=== PATIENT | male | born 1990 | race African-American/Black ===

== ENCOUNTER 2022-08-08 11:35 | Outpatient (REF) | payer MEDICAID, SELFPAY ==
[2022-08-08 12:42] LABS: COVID-19 Test Negative (Negative); IDNOW Serial# 55D5AD1C
== END 2022-08-08 11:36 | disposition home or self-care (01) ==
LOC: HO.LAB 11:35
PROVIDERS: Visit Provider Internal Medicine
DX: Z20.822 Contact with and (suspected) exposure to COVID-19 (principal)
CPT/HCPCS: 87635; C9803

== ENCOUNTER 2022-09-25 10:24 | Emergency (ER) | payer MEDICAID, SELFPAY ==
--- NOTE | ~2022-09-25 | XR_ITS ---
EXAMINATION: XR LUMBOSACRAL SPINE CLINICAL INFORMATION: Back pain. COMPARISON: None TECHNIQUE: Three views of the lumbosacral spine. FINDINGS: The vertebral bodies and posterior elements are normal. The disc spaces are preserved and the vertebral alignment is normal. The paraspinal soft tissues are normal. XR/XR lumbar spine 2-3V IMPRESSION: Unremarkable lumbar spine.
[2022-09-25 12:04] VITALS: BP 110/83; PULSE 49; RESP 18; TEMP 36.2; O2SAT 100; BMI 26.6
--- NOTE | 2022-09-25 12:07 | ED_ITS ---
HPI - General Adult General Chief complaint: Back Pain/Injury <MARKO Weston - Last Filed: 09/30/22 15:18> Stated complaint: Low Back Pain No Injury <MARKO Weston - Last Filed: 09/30/22 15:18> Time Seen by Provider: 09/25/22 12:57 <MARKO Weston - Last Filed: 09/30/22 15:18> History of Present Illness HPI narrative: Patient complains of back pain for the last 3 days after bending while getting dressed, no radiation of pain, no weakness of muscles no difficulty walking, pain is reproduced with movement, no changes to bowel or bladder no loss of sensation <MARKO Max Last Filed: 09/25/22 17:55> Related Data Home medications: Previous Rx's Medication Instructions Recorded acetaminophen 500 mg tablet 1,000 mg PO QID PRN pain #30 tabs 09/25/22 cyclobenzaprine 5 mg tablet 5 mg PO TID PRN muscle spasm #14 09/25/22 tabs ibuprofen 600 mg tablet 600 mg PO Q6H PRN pain #20 tabs 09/25/22 oxycodone 5 mg tablet 5 mg PO Q6H PRN pain #10 tabs 09/25/22 <MARKO Weston - Last Filed: 09/30/22 15:18> Allergies/adverse reactions: Allergies Allergy/AdvReac Type Severity Reaction Status Date / Time No Known Allergies Allergy Verified 09/25/22 12:07 <MARKO Weston - Last Filed: 09/30/22 15:18> Review of Systems Review of Systems: Positive for back pain worse with movement Negatives no fever no chills no dizziness no weakness no headache no neck pain no stiff neck no chest pain no shortness of breath no abdominal pain no nausea vomiting or diarrhea no changes to bowel or bladder no incontinence no dysuria no frequency no constipation no skin rash <MARKO Max - Last Filed: 09/25/22 17:55> Yes all other systems are reviewed and are negative <MARKO Max - Last Filed: 09/25/22 17:55> PMFSH Past Medical History Source: obtained from family <MARKO Max Last Filed: 09/25/22 17:55> Social History Social History: Social History Advance Directives: No Advance Directives Information Provided: No <MARKO Weston Last Filed: 09/30/22 15:18> Physical Exam ED Vital Signs: Vital Signs - 24 hr 09/25/22 12:04 Temperature 97.1 F Pulse Rate 49 L Respiratory Rate 18 Blood Pressure 110/83 Pulse Oximetry 100 Oxygen Delivery Method Room Air BMI result Body Mass Index 26.6 <MARKO Weston Last Filed: 09/30/22 15:18> Vital Signs - 24 hr 09/25/22 12:04 Temperature 97.1 F Pulse Rate 49 L Respiratory Rate 18 Blood Pressure 110/83 Pulse Oximetry 100 Oxygen Delivery Method Room Air BMI result Body Mass Index 26.6 <MARKO Max Last Filed: 09/25/22 17:55> General appearance is no distress Head is normocephalic atraumatic Neck is supple nontender Chest clear to auscultation bilateral No respiratory distress Abdomen soft nontender The back had lower lumbar bilateral paraspinal tenderness, there is no focal bony tenderness there is no CVA tenderness, skin of the back was normal no redness no rash no swelling Extremities full range of motion x4 Neuro gait and balance are normal, motor is 5/5 x4 and sensation is intact and symmetric <MARKO Max - Last Filed: 09/25/22 17:55> Course Course Course Narrative: patient presents to the ED for back pain after bending down and heavy lifting. Patient denies any urinary symptoms abdominal pain, nausea, vomiting, fever, chills, flank pain, any recent trauma. Lumbar x-ray ordered. rapid medical screening done <MARKO Weston Last Filed: 09/30/22 15:18> patient presents to the ED for back pain after bending down and heavy lifting. Patient denies any urinary symptoms abdominal pain, nausea, vomiting, fever, chills, flank pain, any recent trauma. Lumbar x-ray ordered. rapid medical screening done Well-appearing patient with reproducible back pain after an injury, no neurol ogic deficit no incontinence no IV drug use no fever is discharged ambulating easily <MARKO Max Last Filed: 09/25/22 17:55> Medical Decision Making Lab Data Labs: Lab Results 09/25/22 Range/Units 12:18 Urine Color Yellow Urine Appearance Turbid Urine pH 7.0 (5.0-9.0) Ur Specific [place] 1.020 (1.005-1.025) Urine Protein Negative (Neg-Trace) mg/dL Urine Glucose (UA) Negative (Negative) mg/dL Urine Ketones Negative (Negative) mg/dL Urine Blood Negative (Negative) Urine Nitrite Negative (Negative) Ur Leukocyte Esterase Negative (Negative) <MARKO Weston - Last Filed: 09/30/22 15:18> Lab Results 09/25/22 Range/Units 12:18 Urine Color Yellow Urine Appearance Turbid Urine pH 7.0 (5.0-9.0) Ur Specific [place] 1.020 (1.005-1.025) Urine Protein Negative (Neg-Trace) mg/dL Urine Glucose (UA) Negative (Negative) mg/dL Urine Ketones Negative (Negative) mg/dL Urine Blood Negative (Negative) Urine Nitrite Negative (Negative) Ur Leukocyte Esterase Negative (Negative) <MARKO Max - Last Filed: 09/25/22 17:55> Discharge Plan Discharge Clinical Impression: Strain of lumbar region <MARKO Weston - Last Filed: 09/30/22 15:18> Patient Disposition: Home, Self-Care <MAKRO Weston - Last Filed: 09/30/22 15:18> Additional Instructions: Most back strains are self limited and get better on their own in a few days Follow with your doctor if needed Return any time any worse condition or any concerns <MARKO Weston - Last Filed: 09/30/22 15:18> Prescriptions: New oxycodone 5 mg tablet 5 mg PO Q6H PRN (Reason: pain) Qty: 10 0RF Rx Instructions: Partial Fill upon patient request. cyclobenzaprine 5 mg tablet 5 mg PO TID PRN (Reason: muscle spasm) Qty: 14 0RF Rx Instructions: Medication may cause drowsiness no driving for 6 hours after taking acetaminophen 500 mg tablet 1,000 mg PO QID PRN (Reason: pain) Qty: 30 0RF ibuprofen 600 mg tablet 600 mg PO Q6H PRN (Reason: pain) Qty: 20 0RF <MARKO Weston - Last Filed: 09/30/22 15:18> Stand Alone Forms: Work/School Release <MARKO Weston - Last Filed: 09/30/22 15:18> Interventions: ED Discharge Assessment Last Done: 09/25/22 14:05 <MARKO Weston - Last Filed: 09/30/22 15:18> Discharge Date/Time: 09/25/22 14:08 <MARKO Weston - Last Filed: 09/30/22 15:18>
[2022-09-25 12:35] LABS: Appearance Urine Turbid; Color Urine Yellow; Glucose Urine UA Negative (Negative); Leukocyte Esterase Urine Negative (Negative); Nitrite Urine Negative (Negative); Urine Blood Negative (Negative); Urine Ketones Negative (Negative); Urine Protein Negative (Neg-Trace)
--- OUTSIDE RECORDS SUMMARY | 2022-09-25 13:24 | XMS_ITS | Continuity of Care Document ---
:1990 Author Organization [facility] Address [address] [facility], 3rd Floor, [address] [place] [id number]- Care Team Providers Name Role Phone Christina Hutson DO Primary Care Physician Encounter [facility] [place] Date(s): 01/26/21 - 02/25/21 [facility] [address] [facility], 3rd [facility], [address] [place] [id number] Attending Physician: Robert Garcia Admitting Physician: Robert Garcia Referring Physician: AdmtrRobert Allergies, Adverse Reactions, Alerts Substance Reaction Severity Status NKA Active Medications TEGretol XR 100 mg oral tablet, extended release See Instructions, 2 tablet By Mouthin AM, 3 in PM, # 150 tablet, Refills 11, Tot. Refills 11, Maintenance, 07/27/20 12:51:00 EDT, Instructions Replace Required Details, Route to Pharmacy Electronically, [facility], dose increase, e... Start Date: 07/27/20 Status: OrderedTopamax 100 mg oral tablet 1 tablet = 100 mg, By Mouth, 2 times a day, Take with topamax 200 mg, for total dose of 300 mg bid, # 60 tablet, 10 Refills, Maintenance, 01/26/21 10:10:00 EST, Tablet, [facility], Partial fill upon patient request if the prescript... Start Date: 01/26/21 Status: OrderedTopamax 200 mg oral tablet 1 tablet = 200 mg, By Mouth, 2 times a day, # 60 tablet, 11 Refills, Maintenance, 07/27/20 12:51:00 EDT, Tablet, [facility], 174.2, cm, 12/20/19 9:07:00 EST, Height, 85.3, kg, 12/16/19 10:39:00 EST, Dry Weight Start Date: 07/27/20 Status: OrderedVitamin D3 1000 intl units oral tablet 1 tablet = 1,000 International_Units, By Mouth, Daily, # 90 tablet, 3 Refills, Maintenance, 01/24/2114:25:00 EST, Tablet, [facility], 174.2, cm, 12/20/19 9:07:00 EST, Height, 85.3,kg, 12/16/19 10:39:00 EST, Dry Weight Start Date: 01/24/21 Stop Date: 01/19/22 Status: Ordered Problem List Condition Effective Dates Status Health Status Informant 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
--- OUTSIDE RECORDS SUMMARY | 2022-09-25 13:24 | XMS_ITS | Continuity of Care Document ---
:1990 Author Organization [facility] Address Unavailable , Care Team Providers Name Role Phone Caryl LEVY Christina Jason Primary Care Physician Encounter [facility] [place] Date(s): 01/21/22 - 02/20/22 [facility] Attending Physician: Robert Garcia Admitting Physician: Robert Garcia Referring Physician: Robert Garcia Allergies, Adverse Reactions, Alerts No Known Allergies Medications TEGretol XR 100 mg oral tablet, extended release See Instructions, 2 tablet By Mouthin AM, 3 in PM, # 150 tablet, Refills 10, Tot. Refills 10, Maintenance, 01/21/22 16:07:00 EST, Instructions Replace Required Details, Route to Pharmacy Electronically, [facility], dose increase, e... Start Date: 01/21/22 Status: OrderedTopamax 100 mg oral tablet 1 tablet = 100 mg, By Mouth, 2 times a day, Take with topamax 200 mg, for total dose of 300 mg bid, # 60 tablet, 10 Refills, Maintenance, 01/21/22 16:07:00 EST, Tablet, [facility], Partial fill upon patient request if the prescript... Start Date: 01/21/22 Status: OrderedTopamax 200 mg oral tablet 1 tablet = 200 mg, By Mouth, 2 times a day, # 60 tablet, 10 Refills, Maintenance, 01/21/22 16:07:00 EST, Tablet, [facility] Start Date: 01/21/22 Status: OrderedVitamin D3 1000 intl units oral tablet 1 tablet = 1,000 International_Units, By Mouth, Daily, # 90 tablet, 1 Refills, Maintenance, 02/04/2210:24:00 EDT, Tablet, [facility] Start Date: 02/04/22 Stop Date: 08/03/22 Status: Ordered Problem List Condition Effective Dates [...]
--- OUTSIDE RECORDS SUMMARY | 2022-09-25 13:24 | XMS_ITS | Continuity of Care Document ---
:1990 Author Organization [facility] Address [address] [facility], 3rd Floor, [address] [place] [phone]- Care Team Providers Name Role Phone Christina Hutson DO Primary Care Physician Encounter [facility] [place] Date(s): 01/24/21 - 02/23/21 [facility] [address] [facility], 3rd Floor, [address] [place] [id number] Allergies, Adverse Reactions, Alerts Substance Reaction Severity Status NKA Active Medications TEGretol XR 100 mg oral tablet, extended release See Instructions, 2 tablet By Mouthin AM, 3 in PM, # 150 tablet, Refills 11, Tot. Refills 11, Maintenance, 07/27/20 12:51:00 EDT, Instructions Replace Required Details, Route to Pharmacy Electronically, [facility], dose increase, e... Start Date: 07/27/20 Status: OrderedTopamax 100 mg oral tablet 1 tablet = 100 mg, By Mouth, 2 times a day, Take with topamax 200 mg, for total dose of 300 mg bid, # 60 tablet, 10 Refills, Maintenance, 01/26/21 10:10:00 EST, Tablet, [facility], Partial fill upon patient request if the prescript... Start Date: 01/26/21 Status: OrderedTopamax 200 mg oral tablet 1 tablet = 200 mg, By Mouth, 2 times a day, # 60 tablet, 11 Refills, Maintenance, 07/27/20 12:51:00 EDT, Tablet, [facility], 174.2, cm, 12/20/19 9:07:00 EST, Height, 85.3, kg, 12/16/19 10:39:00 EST, Dry Weight Start Date: 07/27/20 Status: OrderedVitamin D3 1000 intl units oral tablet 1 tablet = 1,000 International_Units, By Mouth, Daily, # 90 tablet, 3 Refills, Maintenance, 01/24/2114:25:00 EST, Tablet, [facility], 174.2, cm, 12/20/19 9:07:00 EST, Height, 85.3,kg, 12/16/19 10:39:00 EST, Dry Weight Start Date: 01/24/21 Stop Date: 01/19/22 Status: Ordered Problem List Condition Effective Dates Status Health Status Informant 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
--- OUTSIDE RECORDS SUMMARY | 2022-09-25 13:24 | XMS_ITS | Continuity of Care Document ---
:1990 Author Organization [facility] Address [address] [place] [address]- Care Team Providers Name Role Phone Shakagrace LEVYHoaChristina Jason Primary Care Physician Encounter [facility] [id number] Date(s): 10/26/19 - 11/05/19 [facility] [address] [place] [address]- [facility] Attending Physician: Robert Garcia Admitting Physician: AdmRobert henry Referring Physician: Admtr ArRomulo Allergies, Adverse Reactions, Alerts Substance Reaction Severity Status NKA Active Medications TEGretol XR 100 mg oral tablet, extended release 200 mg, 2, tablet, By Mouth, 2 times a day, for 30 days, # 120 tablet, Refills 7, Tot. Refills 7, Hard Stop 12/01/19 11:41:28 EST, 04/05/19 11:41:28 EDT, Route to Pharmacy Electronically, [facility] Start Date: 04/05/19 Stop Date: 12/01/19 Status: OrderedTEGretol XR 100 mg oral tablet, extended release See Instructions, 2 tablet By Mouthin AM, 3 in PM, # 150 tablet, Refills 11, Tot. Refills 11, Maintenance, 12/01/19 11:41:00 EST, Instructions Replace Required Details, Route to Pharmacy Electronically, [facility], dose increa... 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
--- OUTSIDE RECORDS SUMMARY | 2022-09-25 13:24 | XMS_ITS | Continuity of Care Document ---
:1990 Author Organization [facility] Address [address] [facility], 3rd Floor, [address] [place] [phone]- Care Team Providers Name Role Phone Christina Hutson DO Primary Care Physician Encounter [facility] [place] Date(s): 01/01/21 - 01/31/21 [facility] [address] [facility], 3rd [facility], [address] [place] [id number] [place] Allergies, Adverse Reactions, Alerts Substance Reaction Severity Status NKA Active Medications TEGretol XR 100 mg oral tablet, extended release See Instructions, 2 tablet By Mouthin AM, 3 in PM, # 150 tablet, Refills 11, Tot. Refills 11, Maintenance, 07/27/20 12:51:00 EDT, Instructions Replace Required Details, Route to Pharmacy Electronically, [facility], dose increase, e... Start Date: 07/27/20 Status: OrderedTopamax 100 mg oral tablet 1 tablet = 100 mg, By Mouth, 2 times a day, Take with topamax 200 mg, for total dose of 300 mg bid, # 60 tablet, 10 Refills, Maintenance, 01/26/21 10:10:00 EST, Tablet, [facility], Partial fill upon patient request if the prescript... Start Date: 01/26/21 Status: OrderedTopamax 200 mg oral tablet 1 tablet = 200 mg, By Mouth, 2 times a day, # 60 tablet, 11 Refills, Maintenance, 07/27/20 12:51:00 EDT, Tablet, [facility], 174.2, cm, 12/20/19 9:07:00 EST, Height, 85.3, kg, 12/16/19 10:39:00 EST, Dry Weight Start Date: 07/27/20 Status: OrderedVitamin D3 1000 intl units oral tablet 1 tablet = 1,000 International_Units, By Mouth, Daily, # 90 tablet, 3 Refills, Maintenance, 01/24/2114:25:00 EST, Tablet, [facility], 174.2, cm, 12/20/19 9:07:00 EST, Height, [...]
--- OUTSIDE RECORDS SUMMARY | 2022-09-25 13:24 | XMS_ITS | Continuity of Care Document ---
:1990 Author Organization [facility] Address Unavailable , Care Team Providers Name Role Phone Jackie Hutson DOnifer Jason Primary Care Physician Encounter [facility] [place] Date(s): 07/30/21 - 08/29/21 [facility] Allergies, Adverse Reactions, Alerts Substance Reaction Severity Status NKA Active Medications TEGretol XR 100 mg oral tablet, extended release See Instructions, 2 tablet By Mouthin AM, 3 in PM, # 150 tablet, Refills 11, Tot. Refills 11, Maintenance, 07/30/21 11:01:00 EDT, Instructions Replace Required Details, Route to Pharmacy Electronically, [facility], dose increase, e... Start Date: 07/30/21 Status: OrderedTopamax 100 mg oral tablet 1 tablet = 100 mg, By Mouth, 2 times a day, Take with topamax 200 mg, for total dose of 300 mg bid, # 60 tablet, 10 Refills, Maintenance, 07/30/21 11:01:00 EDT, Tablet, [facility], Partial fill upon patient request if the prescript... Start Date: 07/30/21 Status: OrderedTopamax 200 mg oral tablet 1 tablet = 200 mg, By Mouth, 2 times a day, # 60 tablet, 11 Refills, Maintenance, 07/30/21 11:01:00 EDT, Tablet, [facility], 174.2, cm, 12/20/19 9:07:00 EST, Height, 85.3, kg, 12/16/19 10:39:00 EST, Dry Weight Start Date: 07/30/21 Status: OrderedVitamin D3 1000 intl units oral tablet 1 tablet = 1,000 International_Units, By Mouth, Daily, # 90 tablet, 3 Refills, Maintenance, 01/24/2114:25:00 EST, Tablet, [facility], 174.2, cm, 12/20/19 9:07:00 [...]
--- OUTSIDE RECORDS SUMMARY | 2022-09-25 13:24 | XMS_ITS | Continuity of Care Document ---
:1990 Author Organization [facility] Address [address] [facility], 3rd Floor, [address] [place] [phone]- Care Team Providers Name Role Phone Shakagrace Christina Jason Primary Care Physician Encounter [facility] [place] Date(s): 04/11/21 - 05/11/21 [facility] [address] [facility], 3rd [facility], [address] [place] [id number] Allergies, Adverse Reactions, Alerts Substance Reaction Severity Status NKA Active Medications TEGretol XR 100 mg oral tablet, extended release See Instructions, 2 tablet By Mouthin AM, 3 in PM, # 150 tablet, Refills 11, Tot. Refills 11, Maintenance, 07/27/20 12:51:00 EDT, Instructions Replace Required Details, Route to Pharmacy Electronically, [facility], dose increase, e... Start Date: 07/27/20 Status: OrderedTopamax 100 mg oral tablet 1 tablet = 100 mg, By Mouth, 2 times a day, Take with topamax 200 mg, for total dose of 300 mg bid, # 60 tablet, 10 Refills, Maintenance, 01/26/21 10:10:00 EST, Tablet, [facility], Partial fill upon patient request if the prescript... Start Date: 01/26/21 Status: OrderedTopamax 200 mg oral tablet 1 tablet = 200 mg, By Mouth, 2 times a day, # 60 tablet, 11 Refills, Maintenance, 07/27/20 12:51:00 EDT, Tablet, [facility], 174.2, cm, 12/20/19 9:07:00 EST, Height, 85.3, kg, 12/16/19 10:39:00 EST, Dry Weight Start Date: 07/27/20 Status: OrderedVitamin D3 1000 intl units oral tablet 1 tablet = 1,000 International_Units, By Mouth, Daily, # 90 tablet, 3 Refills, Maintenance, 01/24/2114:25:00 EST, Tablet, [facility], 174.2, cm, 12/20/19 9:07:00 EST, [...]
--- OUTSIDE RECORDS SUMMARY | 2022-09-25 13:24 | XMS_ITS | Continuity of Care Document ---
:1990 Author Organization [facility] Address [address] [place] [id number]- Care Team Providers Name Role Phone Christina Hutson DO Primary Care Physician Encounter [facility] [place] Date(s): 10/26/19 - 02/15/20 [facility] [address] [place] [phone]- [facility] Discharge Disposition: A-D/C Home Attending Physician: Nadia Al MD Admitting Physician: Nadia Al MD Referring Physician: Christina Hutson DO Allergies, Adverse Reactions, Alerts Substance Reaction Severity Status NKA Active Medications TEGretol XR 100 mg oral tablet, extended release See Instructions, 2 tablet By Mouthin AM, 3 in PM, # 150 tablet, Refills 11, Tot. Refills 11, Maintenance, 12/01/19 11:41:00 EST, Instructions Replace Required Details, Route to Pharmacy Electronically, [facility] - , dose increa... Start Date: 12/01/19 Status: OrderedTopamax 200 mg oral tablet 1 tablet = 200 mg, By Mouth, 2 times a day, # 60 tablet, 11 Refills, Maintenance, 12/20/19 9:28:00 EST, Tablet, [facility] - , 174.2, cm, 12/20/19 9:07:00 EST, Height, 85.3, kg, 12/16/19 10:39:00 EST, Dry Weight Start Date: 12/20/19 Status: OrderedTopamax 50 mg oral tablet 1 tablet = 50 mg, By Mouth, 2 times a day, Take with 200mg tab for total daily dose of 250 mg bid., # 60 tablet, 11 Refills, Maintenance, 12/20/19 9:28:00 EST, Tablet, [facility] - , 174.2, cm, 12/20/19 9:07:00 EST, Height, 85.3,... 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) Vital Signs Most recent to oldest [Reference Range]: 1 Height 174.2 cm (12/16/19 10:39 AM) Weight 85.3 kg (12/16/19 10:39 AM) Pulse Rate [55-90 bpm] 51 bpm *L* (12/16/19 10:39 AM) Body Mass Index [18.5-24.99] 28.11 *H* (12/16/19 10:39 AM) Blood Pressure [90-138/55-84 mm Hg] 127/69 mm Hg (12/16/19 10:39 AM) Temperature [96.8-100.4 DegF] 97.5 DegF (12/16/19 10:39 AM) Blood pressure sites Arm, left (12/16/19 10:39 AM) Temperature Route Temporal (12/16/19 10:39 AM) Dry Weight 85.3 kg (12/16/19 10:39 AM) Weight Obtained Via Standing scale (12/16/19 10:39 AM) Dry Weight Obtained Via Standing scale (12/16/19 10:39 AM) Social History Social History Type Response Smoking Status Never smoker; Tobacco user i n household: No entered on: 04/05/16 Sex
--- OUTSIDE RECORDS SUMMARY | 2022-09-25 13:24 | XMS_ITS | Continuity of Care Document ---
:1990 Author Organization [facility] Address [address] [facility], 3rd Floor, [address] [place] [id number]- Care Team Providers Name Role Phone Shakagrace Hoa LEVYfer Jason Primary Care Physician Encounter [facility] [place] Date(s): 10/28/20 - 02/25/21 [facility] [address] [facility], 3rd Floor, [address] [place] [id number] Attending Physician: Kenyon Brush MD Admitting Physician: Kenyon Brush MD Allergies, Adverse Reactions, Alerts Substance Reaction Severity [...]
--- OUTSIDE RECORDS SUMMARY | 2022-09-25 13:24 | XMS_ITS | Continuity of Care Document ---
:1990 Author Organization [facility] Address [address] [facility], 3rd Floor, [address] [place] [id number] Care Team Providers Name Role Phone Shakagrace LEVYJackieChristina Jason Primary Care Physician Encounter [facility] [id number] Date(s): 05/02/20 - 06/01/20 [facility] [address] [facility], [address]rd [address], [address] [place] [id number] [facility] Attending Physician: Robert Garcia Admitting Physician: AdmtrRobert Referring Physician: AdmtrRobert Allergies, Adverse Reactions, Alerts Substance Reaction Severity Status NKA Active Medications TEGretol XR 100 mg oral tablet, extended release See Instructions, 2 tablet By Mouthin AM, 3 in PM, # 150 tablet, Refills 11, Tot. Refills 11, Maintenance, 12/01/19 11:41:00 EST, Instructions Replace Required Details, Route to Pharmacy Electronically, [facility], dose increa... Start Date: 12/01/19 Status: OrderedTopamax 200 mg oral tablet 1 tablet = 200 mg, By Mouth, 2 times a day, # 60 tablet, 11 Refills, Maintenance, 12/20/19 9:28:00 EST, Tablet, [facility] - , 174.2, cm, 12/20/19 9:07:00 EST, Height, 85.3, kg, 12/16/19 10:39:00 EST, Dry Weight Start Date: 12/20/19 Status: OrderedTopamax 50 mg oral tablet 1 tablet = 50 mg, By Mouth, 2 times a day, Take with 200mg tab for total daily dose of 250 mg bid., # 60 tablet, 11 Refills, Maintenance, 12/20/19 9:28:00 EST, Tablet, [facility] - , 174.2, cm, 12/20/19 9:07:00 EST, Height, 85.3,... Start Date: 12/20/19 Status: OrderedVitamin D3 1000 intl units oral tablet 1 tablet = 1,000 International_Units, By Mouth, Daily, # 90 tablet, 3 Refills, Maintenance, 01/23/2015:26:00 EDT, Tablet, [facility] - , 174.2, cm, 12/20/19 [...]
== END 2022-09-25 14:08 | disposition home or self-care (01) ==
PROVIDERS: Physician Assistant; Emergency Provider Emergency Medicine; PCP Family Medicine
DX: M54.50 Low back pain, unspecified (principal); Z79.899 Other long term (current) drug therapy
CPT/HCPCS: 72100; 81003; 99282; 99283

== ENCOUNTER 2023-06-26 13:45 | Outpatient (REF) | payer MEDICAID, SELFPAY ==
--- NOTE | ~2023-06-26 | XR_ITS ---
EXAMINATION: XR CHEST 2 VIEW CLINICAL INFORMATION: Follow-up pneumonia COMPARISON: 04/23/2017 TECHNIQUE: PA and lateral views of the chest obtained. FINDINGS: The lungs are clear. There are no pleural effusions. The cardiomediastinal silhouette is normal. XR/XR chest 2V IMPRESSION: No acute cardiopulmonary disease.
== END 2023-06-26 13:46 | disposition home or self-care (01) ==
LOC: HO.HHCX 13:45
PROVIDERS: Visit Provider General Practice
DX: J18.9 Pneumonia, unspecified organism (principal)
CPT/HCPCS: 71046

== ENCOUNTER 2024-08-11 09:48 | Outpatient (REF) | payer MEDICAID, SELFPAY ==
[2024-08-11 11:39] LABS: Estimated Glomerular Filt Rate > 60
[2024-08-11 11:52] LABS: Syphilis Screen Nonreactive (Nonreactive)
[2024-08-11 11:53] LABS: ~HepC Num1 0.12 S/CO (0.00-0.79); ~Hepatitis C Antibody Nonreactive (Nonreactive)
[2024-08-13 12:59] LABS: HIV RNA PCR Qn Copies NOT DETECTED copies/mL (NOT DETECTED); HIV RNA PCR Qn Log Copies NOT DETECTED (NOT DETECTED)
== END 2024-08-11 09:49 | disposition home or self-care (01) ==
LOC: HO.HHCL 09:48
PROVIDERS: Visit Provider Family Medicine
DX: Z11.3 Encounter for screening for infections with a predominantly sexual mode of transmission (principal)
CPT/HCPCS: 36415; 82565; 86780; 86803; 87536

== ENCOUNTER 2024-11-22 11:36 | Outpatient (REF) | payer MEDICAID, SELFPAY ==
[2024-11-22 13:54] LABS: MANUAL DIFF FLAG NO
[2024-11-22 13:55] LABS: Basophils Percent Auto 0.7 % (0-2); Hematocrit 48.9 % (42.0-52.0); Hemoglobin 15.6 g/dl (14.0-18.0); Lymphocytes Absolute Auto 1.4 X10*3/uL (1.2-4.9); Lymphocytes Percent Auto 46.9 % (20-40); Mean Corpuscular HGB Conc 31.9 g/dl (31.0-36.0); Mean Corpuscular Hemoglobin 30.6 pg (27.0-33.0); Mean Corpuscular Volume 96.1 fL (80.0-98.0); Mean Platelet Volume 11.3 fL (9.4-12.4); Monocytes Absolute Auto 0.3 X10*3/uL (0.1-1.2); Monocytes Percent Auto 8.9 % (2-11); Neutrophils Absolute Auto 1.2 x10*3/uL (2.0-8.3); Neutrophils Percent Auto 42.5 % (45-73); Platelet Count 178 X10*3/uL (160-400); Red Blood Count 5.09 X10*6/uL (4.60-5.80); Red Cell Distribution Width 12.9 % (11.0-16.0); White Blood Count 2.9 X10*3/uL (4.8-10.8)
[2024-11-22 14:06] LABS: Estimated Average Glucose 94 mg/dL; Hemoglobin A1C 122.1742 umol/L; Hemoglobin A1c % 4.9 % (<6.0); Total Hemoglobin (HGBA1C) 4110.0338 umol/L
[2024-11-22 14:23] LABS: Alanine Aminotransferase 19 U/L (0-40); Albumin Level 4.1 g/dL (3.5-5.0); Alkaline Phosphatase 76 U/L (39-117); Anion Gap 8 (12-20); Aspartate Amino Transferase 24 U/L (5-37); Bilirubin Direct 0.2 mg/dL (0.0-0.5); Bilirubin Total 0.4 mg/dL (0.0-1.0); Blood Urea Nitrogen 13 mg/dL (9-16); Calcium 9.5 mg/dL (8.4-10.2); Carbon Dioxide 23 mmol/L (22-29); Chloride 114 mmol/L (96-108); Cholesterol 154 mg/dL (<200); Estimated Glomerular Filt Rate > 60; Glucose Random 102 mg/dL (60-115); HDL Cholesterol 73 mg/dL (>40); LDL Cholesterol Calculated 70 mg/dL (<100); Sodium 141 mmol/L (135-145); Total Protein 7.8 g/dL (6.5-8.0); Triglycerides 55 mg/dL (<150)
[2024-11-22 14:41] LABS: Free T4 (Free Thyroxine) 0.88 ng/dL (0.71-1.85); Vitamin D 25-OH Total 85.3 ng/mL (>30)
[2024-11-23 09:02] LABS: HBS Num1 41.04 mIU/mL (0-7.99); HBsAGNum1 0.39 S/CO (0.00-0.99); HIV AB/AG Nonreactive (Nonreactive); HIV Num 1 0.06 S/CO (0.00-0.99); Hepatitis B Surface Antigen Negative (Negative); ~HepC Num1 0.14 S/CO (0.00-0.79); ~Hepatitis B Surface Antibody REACTIVE (Nonreactive); ~Hepatitis C Antibody Nonreactive (Nonreactive)
[2024-11-24 10:08] LABS: RPR Rapid Plasma Reagin NON-REACTIVE (NON-REACTIVE)
== END 2024-11-22 11:37 | disposition home or self-care (01) ==
LOC: HO.HHCL 11:36
PROVIDERS: Visit Provider Family Medicine
DX: Z00.00 Encounter for general adult medical examination without abnormal findings (principal); G40.909 Epilepsy, unspecified, not intractable, without status epilepticus; D72.819 Decreased white blood cell count, unspecified; M54.50 Low back pain, unspecified; G89.29 Other chronic pain; Z68.28 Body mass index [BMI] 28.0-28.9, adult
CPT/HCPCS: 36415; 80048; 80061; 80076; 82306; 83036; 84439; 84443; 85025; 86592; 86706; 86803; 87340; 87389

== ENCOUNTER 2025-05-12 14:19 | Emergency (ER) | payer MEDICARE, MEDICAID, SELFPAY ==
--- NOTE | ~2025-05-12 | XR_ITS ---
EXAMINATION: XR CHEST CLINICAL INFORMATION: chest pain COMPARISON: June 26, 2023 TECHNIQUE: Frontal view of the chest was obtained. FINDINGS: New focal airspace opacity is present in the mid third lung zone on the right. Lungs are otherwise clear. Heart and hilar contours are within normal limits. XR/XR chest 1V IMPRESSION: Acute lobar pneumonia in the right midlung zone. Electronically signed by: Marquise Bush MD 05/12/2025 03:23 PM EDT
--- NOTE | 2025-05-12 14:22 | ECG_ITS ---
Test Reason : chest pain Blood Pressure : */* mmHG Vent. Rate : 74 BPM Atrial Rate : 74 BPM P-R Int : 154 ms QRS Dur : 102 ms QT Int : 364 ms P-R-T Axes : 56 45 20 degrees QTcB Int : 404 ms Normal sinus rhythm Minimal voltage criteria for LVH, may be normal variant ( Sokolow-Finney ) Nonspecific T wave abnormality Abnormal ECG When compared with ECG of 21-Feb-2013 12:35, Nonspecific ST and T wave abnormality Present Referred By: Generic ED Physician Electronically Signed By: CHIKIS CARRION
[2025-05-12 15:01] VITALS: BP 123/71; PULSE 81; RESP 16; TEMP 37.3; O2SAT 100; BMI 28.1
[2025-05-12 16:06] LABS: MANUAL DIFF FLAG NO
[2025-05-12 16:14] LABS: Basophils Percent Auto 0.2 % (0-2); Eosinophils Percent Auto 0.1 % (0-4); Hemoglobin 13.7 g/dl (14.0-18.0); Imm Gran Abs Auto 0.02 X10*3/uL (0.00-0.03); Imm Gran Pct Auto 0.2 % (0.0-0.4); Lymphocytes Absolute Auto 1.7 X10*3/uL (1.2-4.9); Lymphocytes Percent Auto 17.9 % (20-40); Mean Corpuscular HGB Conc 32.6 g/dl (31.0-36.0); Mean Corpuscular Hemoglobin 30.4 pg (27.0-33.0); Mean Corpuscular Volume 93.1 fL (80.0-98.0); Mean Platelet Volume 10.4 fL (9.4-12.4); Monocytes Absolute Auto 0.8 X10*3/uL (0.1-1.2); Monocytes Percent Auto 8.5 % (2-11); Neutrophils Absolute Auto 6.8 x10*3/uL (2.0-8.3); Neutrophils Percent Auto 73.1 % (45-73); Platelet Count 213 X10*3/uL (160-400); Red Blood Count 4.51 X10*6/uL (4.60-5.80); Red Cell Distribution Width 13.1 % (11.0-16.0); White Blood Count 9.3 X10*3/uL (4.8-10.8)
[2025-05-12 16:22] LABS: Alanine Aminotransferase 11 U/L (0-40); Albumin Level 4.1 g/dL (3.5-5.0); Alkaline Phosphatase 88 U/L (39-117); Anion Gap 12 (12-20); Aspartate Amino Transferase 20 U/L (5-37); Bilirubin Total 0.5 mg/dL (0.0-1.0); Blood Urea Nitrogen 12 mg/dL (9-16); Calcium 9.4 mg/dL (8.4-10.2); Carbon Dioxide 22 mmol/L (22-29); Chloride 107 mmol/L (96-108); Creatinine Clr Calc Pharmacy 129.5; Estimated Glomerular Filt Rate > 60; Glucose Random 93 mg/dL (60-115); Magnesium 1.8 mg/dL (1.6-2.6); Potassium 3.6 mmol/L (3.3-5.1); Sodium 137 mmol/L (135-145); Total Protein 7.8 g/dL (6.5-8.0)
[2025-05-12 16:31] LABS: Troponin-I High Sensitivity 7.3 ng/L (<3.5-35.0)
--- NOTE | 2025-05-12 16:47 | ED_ITS ---
HPI - Chest Pain General Chief Complaint: Chest Pain Stated Complaint: CP Time Seen by Provider: 05/12/25 16:46 Source: patient, RN notes reviewed and old records reviewed Mode of arrival: ambulatory Limitations: no limitations History of Present Illness ED Provider: Sourav HPI narrative: Patient is a 34-year-old male presenting to the emergency department with complaint of chest pain since Friday. States pain is just to the midline of his sternum. Reports pain woke him from sleep. Complains of associated foul taste in his mouth upon waking which he describes as tasting like vomit. Has been taking [id number] medications with little change but does report some relief from applying icy hot. 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 Complains of mild shortness of breath. Denies recent cough or fever. Denies recent calf pain or swelling, recent travel. Denies any dizziness or lightheadedness. Denies palpitations. MD complaint: chest pain Related Data Previous Rx's ?Medication ?Instructions ?Recorded acetaminophen 500 mg tablet 1,000 mg (2 x 500 mg) PO Q ID PRN 09/25/22 pain #30 tabs cyclobenzaprine 5 mg tablet 5 mg PO TID PRN muscle spa sm #14 09/25/22 tabs ibuprofen 600 mg tablet 600 mg PO Q6H PRN pain #20 t abs 09/25/22 oxycodone 5 mg tablet 5 mg PO Q6H PRN pain #10 tab s 09/25/22 amoxicillin 500 mg tablet 1,000 mg (2 x 500 mg) PO TID 5 05/12/25 days #28 tabs azithromycin 250 mg tablet 250 mg PO DAILY #4 tabs famotidine 20 mg tablet 20 mg PO DAILY #14 tabs 04/18 05/11 Allergies Allergy/AdvReac Type Severity Reaction Status Date / Time No Known Allergies Allergy Verified 05/12/25 15:04 Review of Systems 2 Review of Systems: As per HPI Yes all other systems are reviewed and are negative Constitutional: Constitutional: Reports as per HPI [facility] Social History Social History Advance Directives: No Advance Directives Information Provided: No Do you have a plan to hurt others: No Plan Physical Exam 2 Vital Signs: Vital Signs: Last Vital Signs Temp 99.1 F 05/12/25 15:01 Pulse 81 05/12/25 15:01 Resp 16 05/12/25 15:01 BP 123/71 05/12/25 15:01 Pulse Ox 100 05/12/25 15:01 O2 Del Method Room Air 05/12/25 15:01 BMI result Body Mass Index 28.1 Vital signs have been reviewed and appear to be correct. Blood pressure normal. Heart rate normal. Respiratory rate normal. Temperature normal. Oxygen saturation normal. Const: General: cooperative, healthy appearing and no acute distress O rientation/consciousness: oriented to person, oriented to place, oriented to time and patient oriented x3 Limitations: no limitations HEENT: Head: Yes normocephalic and Yes atraumatic Ears: external ears normal General nose exam: Normal external nose present Face and sinus: Yes face symmetric Mouth: oropharynx normal and moist mucous membranes Throat: Yes uvula midline Eyes: Pupils: Equal, round and reactive pupils present Neck: Neck: Yes normal visual inspection and Yes supple Resp: Effort & Inspection: normal respiratory effort and able to speak in complete sentences Auscultation: clear to auscultation bilaterally Cardio: Rate: regular rate Rhythm: regular rhythm Heart sounds: S1 normal heart sound present and S2 normal heart sound present GI: Palpation (GI): Soft to palpation and nontender Auscultation: n ormoactive bowel sounds : General: Yes no CVA tenderness Back/Spine/Pelvis: Back: no CVA tenderness Skin: General skin exam: elasticity normal and turgor normal Neuro: General: oriented to person, oriented to place, oriented to time, patient oriented x3, moves all extremities, no focal motor deficits and CN's II- XI intact bilaterally Cranial nerves: Yes Equal, round and reactive pupils present Cognition (Neuro): normal cognition Extrem: General: Yes full ROM, Yes no pedal edema and Yes no calf tenderness Psych: Mental Status: mental status grossly normal Affect: normal affect Thought process: Normal thought process present Medical Decision Making Medical Decision Making MDM Narrative: Patient is a 34-year-old male presenting to the emergency department with complaint of chest pain since Friday. On exam patient is awake, A+Ox3, VS WNL, afebrile, normal neurological exam without focal deficits, physical exam findings as above. Given reported symptoms and physical exam findings, initial differential includes but is not limited to GERD, PUD, gastritis, musculoskeletal pain, viral illness, pneumonia. Unlikely ACS. Do not suspect PE, PERC 0. Labs notable for no leukocytosis, no significant electrolyte abnormalities, initial troponin of 7.8, repeat . EKG shows NSR. X-ray chest notable for right midlung pneumonia. My interpretation is in agreement with the radiologist's interpretation. Results discussed with patient and all questions answered. Will treat with azithromycin and amoxicillin. Advised patient he will need to follow up with PCP in 4-6 weeks for repeat chest x-ray to ensure resolution of pneumonia. Given foul taste in posterior oropharynx, will also start on famotidine. Return precautions discussed at bedside. Patient verbalized understanding of and agreement with plan. Differential Diagnosis Differential Diagnoses: The differential diagnosis associated with the presentation includes as per [facility] Admission/Observation Consideration of admission/observation: Escalation of care including admission/observation considered Patient would have been admitted to the hospital had their work up had any findings where hospital admission was appropriate and their clinical presentation warranted hospital admission. Lab Data [facility] Lab Attestation statement: I reviewed the patient's lab results. as per [facility] 05/12/25 15:55 05/12/25 15:55 Labs: Lab Results 05/12/25 Range/Units 15:55 WBC 9.3 (4.8-10.8) X10*3/uL RBC 4.51 L (4.60-5.80) X10*6/uL Hgb 13.7 L (14.0-18.0) g/dl Hct 42.0 (42.0-52.0) % MCV 93.1 (80.0-98.0) fL MCH 30.4 (27.0-33.0) pg MCHC 32.6 (31.0-36.0) g/dl RDW 13.1 (11.0-16.0) % Plt Count 213 (160-400) X10*3/uL MPV 10.4 (9.4-12.4) fL Immature Gran % (Auto) 0.2 (0.0-0.4) % Neut % (Auto) 73.1 H (45-73) % Lymph % (Auto) 17.9 L (20-40) % [place] % (Auto) 8.5 (2-11) % Eos % (Auto) 0.1 (0-4) % Baso % (Auto) 0.2 (0-2) % Lymph # (Auto) 1.7 (1.2-4.9) X10*3/uL [place] # (Auto) 0.8 (0.1-1.2) X10*3/uL Eos # (Auto) 0.0 (0.0-0.4) X10*3/uL Baso # (Auto) 0.0 (0.0-0.2) X10*3/uL Abs Immat Gran (auto) 0.02 (0.00-0.03) X10*3/uL Absolute Neuts (auto) 6.8 (2.0-8.3) x10*3/uL Absolute Nucleated RBC 0.000 (0.0-0.012) X10*3/uL Nucleated RBC % (auto) 0.0 (0.0-0.2) /100WBC Sodium 137 (135-145) mmol/L Potassium 3.6 (3.3-5.1) mmol/L Chloride 107 (96-108) mmol/L Carbon Dioxide 22 (22-29) mmol/L Anion Gap 12 (12-20) BUN 12 (9-16) mg/dL Creatinine 0.84 (0.5-1.4) mg/dL Estim Creat Clear Calc 129.5 Estimated GFR > 60 Random Glucose 93 (60-115) mg/dL Calcium 9.4 (8.4-10.2) mg/dL Magnesium 1.8 (1.6-2.6) mg/dL Total Bilirubin 0.5 (0.0-1.0) mg/dL AST 20 (5-37) U/L ALT 11 (0-40) U/L Alkaline Phosphatase 88 (39-117) U/L Troponin I High Sens 7.3 (<3.5-35.0) ng/L Total Protein 7.8 (6.5-8.0) g/dL Albumin 4.1 (3.5-5.0) g/dL Independent Interpretation I performed an independent interpretation of an: EKG (normal sinus rhythm, rate 74, normal NE interval and QTc) and Plain X-Ray Interpretation: CXR notable for right midlung pneumonia. Radiology Impression Discussion of test interpretation with radiology: I have reviewed the radiologist's reading. Radiologist Impression: XR/XR chest 1V IMPRESSION: Acute lobar pneumonia in the right midlung zone. External Record Review External record reviewed: Inpatient record, Office record and Outpatient record Prescription Management I considered prescription management with: Antibiotic and Other Discharge Plan Discharge Clinical Impression: Right middle lobe pneumonia, Acid reflux Patient Disposition: Home, Self-Care Instructions: GERD (Gastroesophageal Reflux Disease) (DC), Community Acquired Pneumonia (DC) Additional Instructions: You were evaluated in the emergency department today for cough and shortness of breath. Your chest x-ray shows evidence of pneumonia. You are being treated with antibiotics, please complete the full course as prescribed. You are also being prescribed famotidine to treat acid reflux. Please call your primary care provider within the next 2-3 days to schedule a follow-up appointment as you will need a repeat chest x-ray in 4-6 weeks to confirm resolution of the pneumonia. Return to the emergency department if you develop worsening shortness of breath, chest pain, palpitations, fever 100.4? F or greater, or any other concerning symptoms. Prescriptions: New famotidine 20 mg tablet 20 mg PO DAILY Qty: 14 0RF amoxicillin 500 mg tablet 1,000 mg PO TID 5 Days Qty: 28 0RF azithromycin 250 mg tablet 250 mg PO DAILY Qty: 4 0RF No Action oxycodone 5 mg tablet 5 mg PO Q6H PRN (Reason: pain) Qty: 10 0RF Rx Instructions: Partial Fill upon patient request. cyclobenzaprine 5 mg tablet 5 mg PO TID PRN (Reason: muscle spasm) Qty: 14 0RF Rx Instructions: Medication may cause drowsiness no driving for 6 hours after taking acetaminophen 500 mg tablet 1,000 mg PO QID PRN (Reason: pain) Qty: 30 0RF ibuprofen 600 mg tablet 600 mg PO Q6H PRN (Reason: pain) Qty: 20 0RF Print Language: Surinamese
[2025-05-12] MEDS: Lidocaine HCl Viscous 2 % 15 ML SOLUTION MUCOUS MEM (17:23)
[2025-05-12] MEDS: Magnesium Hydrox/Alum Hydrox 30 ML ORAL.SUSP PO (17:23)
[2025-05-12] MEDS: Amoxicillin 500 MG CAPSULE 1000 MG PO (17:29)
[2025-05-12] MEDS: Azithromycin 500 MG TABLET PO (17:29)
[2025-05-12 17:35] VITALS: BP 123/71; PULSE 81; RESP 16; TEMP 37.3; O2SAT 100
[2025-05-12 17:52] LABS: Influenza A PCR NEGATIVE (Negative); Influenza B PCR NEGATIVE (Negative); Resp Syncy Virus RNA Qual PCR NEGATIVE (Negative); SARS COV2 PCR INHOUSE NEGATIVE (Negative)
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
== END 2025-05-12 17:43 | disposition home or self-care (01) ==
PROVIDERS: Registered Nurse Emergency; Emergency Provider Internal Medicine; PCP Family Medicine
DX: J18.9 Pneumonia, unspecified organism (principal); R07.89 Other chest pain; Z03.818 Encounter for observation for suspected exposure to other biological agents ruled out; Z79.899 Other long term (current) drug therapy
CPT/HCPCS: 0241U; 36415; 71045; 80053; 83735; 84484; 85025; 93005; 99283

== ENCOUNTER → 2025-05-12 14:22 | Outpatient (BNV) | payer MEDICARE, MEDICAID, SELFPAY | PROVIDERS: Emergency Provider Internal Medicine; PCP Family Medicine; Visit Provider Internal Medicine | DX: R94.31 Abnormal electrocardiogram [ECG] [EKG] (principal); R07.9 Chest pain, unspecified | CPT/HCPCS: 93010 ==

== ENCOUNTER → 2025-05-12 15:05 | Outpatient (BNV) | payer MEDICAID, SELFPAY | PROVIDERS: PCP Family Medicine; Visit Provider Radiology Diagnostic Radiology | DX: J18.1 Lobar pneumonia, unspecified organism (principal) | CPT/HCPCS: 71045 ==